=== PATIENT | female | born 1980 | race Caucasian/White ===

== ENCOUNTER 2018-12-29 15:52 | Emergency (ER) | payer OTHER ==
[2018-12-29 16:11] VITALS: BP 113/67
--- NOTE | 2018-12-29 17:03 | ED Physician Documentation ---
PD HPI LOWER EXT INJURY - Stated complaint Stated Complaint: L FOOT INJ - Chief complaint Chief Complaint: Ext Problem - History obtained from History obtained from: Patient - History of Present Illness PD HPI LOW EXT INJURY LOCATION: Left, Toe Type of injury: Blunt / blow (hit a wall) Where injury occurred: Work Timing - onset: Today Review of Systems Constitutional: reports: Reviewed and negative Nose: reports: Reviewed and negative Cardiac: reports: Reviewed and negative PD PAST MEDICAL HISTORY - Past Medical History Past Medical History: No - Allergies Allergies/Adverse Reactions: Allergies Allergy/AdvReac Type Severity Reaction Status Date / Time No Known Drug Allergies Allergy Verified 12/29/18 16:11 - Social History Does the pt smoke?: No Smoking Status: Never smoker PD ED PE NORMAL - Vitals Vital signs reviewed: Yes - General General: Alert and oriented X 3, No acute distress - Extremities Extremities: Other (TTP distal phalanx of L great tow, some buising, no deformity) Results - Vitals Vitals: Vital Signs - 24 hr 12/29/18 16:07 Temperature 36.4 C L Heart Rate 75 Respiratory 16 Rate Blood Pressure 113/67 O2 Saturation 98 Oxygen O2 Source Room air PD MEDICAL DECISION MAKING - ED course ED course: She declined prescription pain medication, her toes were emigdio taped and she was placed in a fracture shoe by the tech. Departure - Departure Disposition: 01 Home, Self Care Clinical Impression: Toe fracture, left Qualifiers: Encounter type: sequela Toe: great toe Fracture type: closed Phalanx: distal Fracture alignment: nondisplaced Qualified Code(s): S92.425S - Nondisplaced fracture of distal phalanx of left great toe, sequela Condition: Good Record reviewed to determine appropriate education?: Yes Instructions: ED Fx Toe Closed Comments: You do have a fractured toe, try to baby it. Ibuprofen as needed for pain, return for new or worsening symptoms. Emigdio tape the toes together as shown and you can wear the special shoe as needed for a few weeks to help with the pain. Forms: Activity restrictions
--- NOTE | 2018-12-29 17:05 | XRAY Report ---
Reason: hit toe on cabinet, now toe pain Procedure Date: 12/29/2018 Accession Number: [id number] / [id number] Procedure: XR - Toe(s) LT CPT Code: FULL RESULT: EXAM: LEFT FIRST TOE RADIOGRAPHY EXAM DATE: 12/29/2018 04:31 PM. CLINICAL HISTORY: Hit toe on cabinet, now toe pain. COMPARISON: None. TECHNIQUE: 3 views. FINDINGS: Bones: There is a subtle cortical step off of the first distal phalanx at the interphalangeal joint consistent with nondisplaced intra-articular fracture. Joints: Normal. No subluxations. Soft Tissues: There is soft tissue swelling of the distal first digit. IMPRESSION: Nondisplaced intra-articular fracture first distal phalanx at interphalangeal joint. RADIA
== END 2018-12-29 17:10 | disposition home or self-care (01) ==
LOC: ED 15:52
DX: S92.425A Nondisplaced fracture of distal phalanx of left great toe, initial encounter for closed fracture (principal); W22.01XA Walked into wall, initial encounter
CPT/HCPCS: 1040M; 73660; 99282; 99283

== ENCOUNTER 2019-04-03 20:46 | Emergency (ER) | payer OTHER ==
[2019-04-03 20:52] VITALS: BP 141/80
[2019-04-03] MEDS ORDERED: IBUPROFEN 800 MG TABLET PO STA (21:01)
[2019-04-03] MEDS ORDERED: AMOX/CLAV 875 MG/125 MG TABLET PO STA (21:01)
--- NOTE | 2019-04-03 21:03 | ED Physician Documentation ---
PD HPI HEENT - Stated complaint Stated Complaint: EAR PX - Chief complaint Chief Complaint: Heent - History obtained from History obtained from: Patient - History of Present Illness Timing - onset: Other (Cough and cold for about a week with severe left ear pain today.) Review of Systems Constitutional: denies: Fever, Chills Ears: reports: Loss of hearing, Ear pain. denies: Drainage/discharge Nose: reports: Rhinorrhea / runny nose Throat: denies: Sore throat PD PAST MEDICAL HISTORY - Past Medical History Past Medical History: No - Past Surgical History Past Surgical History: No HEENT: Tonsil/Adenoidectomy - Present Medications Home Medications: Ambulatory Orders Medication Instructions Recorded Confirmed Amox/Clav 875/125 [Augmentin] 1 each PO Q12H #20 tablet 04/03/19 Ibuprofen [Motrin] 800 mg PO Q8H PRN #20 tablet 04/03/19 - Allergies Allergies/Adverse Reactions: Allergies Allergy/AdvReac Type Severity Reaction Status Date / Time No Known Drug Allergies Allergy Verified 04/03/19 20:52 - Social History Does the pt smoke?: No Smoking Status: Never smoker Does the pt drink ETOH?: Yes Does the pt have substance abuse?: No - Immunizations Immunizations are current?: Yes - POLST Patient has POLST: No PD ED PE NORMAL - Vitals Vital signs reviewed: Yes - General General: Alert and oriented X 3, No acute distress - HEENT HEENT: Pharynx benign, Other (Severe left otitis media) - Neck Neck: Supple, no meningeal sign, No bony TTP - Derm Derm: No rash - Neuro Neuro: Alert and oriented X 3, Normal speech Results - Vitals Vitals: Vital Signs - 24 hr 04/03/19 20:50 Temperature 36.8 C Heart Rate 75 Respiratory 16 Rate Blood Pressure 141/80 H O2 Saturation 99 Oxygen O2 Source Room air Departure - Departure Disposition: Home, Self Care Clinical Impression: LOM (left otitis media) Qualifiers: Otitis media type: suppurative Chronicity: acute Recurrence: recurrent Spontaneous tympanic membrane rupture: without spontaneous rupture Qualified Code(s): H66.005 - Acute suppurative otitis media without spontaneous rupture of ear drum, recurrent, left ear Condition: Good Record reviewed to determine appropriate education?: Yes Instructions: ED Otitis Media Acute Adult Prescriptions: Amox/Clav 875/125 [Augmentin] 1 each PO Q12H #20 tablet Ibuprofen [Motrin] 800 mg PO Q8H PRN #20 tablet PRN Reason: PAIN &/OR FEVER Comments: Follow-up with your doctor in 1 week for recheck, return for new or worsening symptoms. Discharge Date/Time: 04/03/19 21:08
== END 2019-04-03 21:08 | disposition home or self-care (01) ==
LOC: ED 20:46
DX: H66.005 Acute suppurative otitis media without spontaneous rupture of ear drum, recurrent, left ear (principal)
CPT/HCPCS: 99282; 99283; A9270